=== PATIENT | female | born 1995 | race Caucasian/White ===

== ENCOUNTER 2017-05-04 16:10 | Emergency (ER) | payer BC, MEDICAID ==
--- NOTE | 2017-05-04 16:30 | EDM.PDOC ---
<Vane Florian - Last Filed: 05/04/17 17:42> ED HPI GENERAL MEDICAL PROBLEM - General Chief Complaint: General Stated Complaint: ILLNESS Time Seen by Provider: 05/04/17 16:29 Source of Information: Reports: Patient History Limitations: Reports: No Limitations - History of Present Illness INITIAL COMMENTS - FREE TEXT/NARRATIVE: PT ARRIVED HERE STATING THAT SHE IS NOT THINKING AND REMEMBERING THINGS. sHE DROVE ABOUT 10 MILES AND SHE DOES NOT REMEMBER DOING THAT. LIKE SHE USUALLY DOES. THAT. Onset: Today Duration: Hour(s):, Getting Worse Location: Reports: Head, Neck Associated Symptoms: Reports: Other (PT FEELS LIKE SHE IS NOT THINKING STRAIGHT. ) - Related Data Allergies Allergy/AdvReac Type Severity Reaction Status Date / Time No Known Allergies Allergy Verified 05/04/17 16:26 Home Meds: Home Meds NK [No Known Home Meds] 05/04/17 [History] Social & Family History - Tobacco Use Years of Tobacco use: 0 Used Tobacco, but Quit: No Second Hand Smoke Exposure: No - Alcohol Use Days Per Week of Alcohol Use: 0 - Recreational Drug Use Recreational Drug Use: No ED ROS GENERAL - Review of Systems Review Of Systems: See Below Constitutional: Reports: No Symptoms HEENT: Reports: No Symptoms Respiratory: Reports: No Symptoms Cardiovascular: Reports: No Symptoms Endocrine: Reports: No Symptoms GI/Abdominal: Reports: No Symptoms : Reports: No Symptoms Musculoskeletal: Reports: No Symptoms Skin: Reports: No Symptoms Neurological: Reports: Other ( DIFFICULTY THINKING STRAIGHT. ) ED EXAM, GENERAL - Physical Exam Exam: See Below Free Text/Narrative:: PT AARRIVED STATING THAT SHE IS NOT THINKING STRAIGHT. sHE DIDN,T REMEMBER DRIVING ABOUT 10 MILES. sHE GAVE BLOOD ON thursday. sHE THEN GOT HER PERIOD WHICH WAS FAUIRLY HEAVY, sHE THEN HAD SOME RINGING IN HER LEFT EAR WHICH SHE WAS SEEN AT THE CLINIC FOR AND NOTHING WAS SEEN, sHE THEN WENT TO THE [facility] FOR HER NECK AND HE DID A MAJOR ADJSTMENT ON THE NECK. Exam Limited By: No Limitations General Appearance: Alert, Anxious, Mild Distress, Other (PUPILS ARE EQUAL AND REACTIVE. ) Ears: Normal TMs Nose: Normal Inspection Throat/Mouth: Normal Inspection Head: Atraumatic Neck: Other ( pT HAS MUSCLE SPASM IN THE POST CERVICAL AREA. ) Respiratory/Chest: No Respiratory Distress Cardiovascular: Regular Rate, Rhythm GI/Abdominal: Soft, Non-Tender (Female) Exam: Deferred Rectal (Female) Exam: Deferred Back Exam: Normal Inspection Extremities: Normal Inspection Neurological: Alert, Oriented, Normal Cognition, Other (PT IS ABLE TO ANSWER QUESTIONS APPROPIATELY . sHE STATES SHE JUST FEELS VAGUE. ) Psychiatric: Anxious Course - Vital Signs Last Recorded V/S: Last Vital Signs Temp 36.4 C 05/04/17 18:44 Pulse 72 05/04/17 18:44 Resp 14 05/04/17 18:44 BP 129/77 05/04/17 18:44 Pulse Ox 100 05/04/17 18:44 Orthostatic Blood Pressure [ 114/77 Standing] Orthostatic Blood Pressure [ 124/74 Sitting] Orthostatic Blood Pressure [ 113/75 Supine] - Orders/Labs/Meds Orders: Active Orders 24 hr Category Date Time Status Cardiac Monitoring [RC] .As Directed Care 05/04/17 16:44 Active Orthostatic Vital Signs [RC] ASDIRECTED Care 05/04/17 16:28 Active Head wo Cont [CT] Stat Exams 05/04/17 17:40 Taken CULTURE URINE [RM] Stat Lab 05/04/17 17:31 Received Sodium Chloride 0.9% [Normal Saline] 1,000 ml Med 05/04/17 17:30 Active IV ASDIRECTED Medication Orders Sodium Chloride (Normal Saline) 1,000 mls @ 999 mls/hr IV ASDIRECTED JONATHAN Last Admin: 05/04/17 17:40 Dose: 999 mls/hr Labs: Laboratory Tests 05/04/17 05/04/17 05/04/17 Range/Units 16:44 16:44 17:05 WBC 7.7 (4.5-11.0) K/uL RBC 4.23 (3.30-5.50) M/uL Hgb 13.2 (12.0-15.0) g/dL Hct 39.5 (36.0-48.0) % MCV 93 (80-98) fL MCH 31 (27-31) pg MCHC 33 (32-36) % Plt Count 302 (150-400) K/uL Neut % (Auto) 79 H (36-66) % Lymph % (Auto) 16 L (24-44) % Wilcox % (Auto) 5 (2-6) % Eos % (Auto) 1 L (2-4) % Baso % (Auto) 0 (0-1) % Sodium 144 (140-148) mmol/L Potassium 4.1 (3.6-5.2) mmol/L Chloride 105 (100-108) mmol/L Carbon Dioxide 28 (21-32) mmol/L Anion Gap 10.9 (5.0-14.0) mmol/L BUN 5 L (7-18) mg/dL Creatinine 0.7 (0.6-1.0) mg/dL Est Cr Clr Drug Dosing 123.63 mL/min Estimated GFR (MDRD) > 60 (>60) Glucose 98 (74-106) mg/dL Calcium 9.2 (8.5-10.1) mg/dL Total Bilirubin 0.5 (0.2-1.0) mg/dL AST 21 (15-37) U/L ALT 18 (12-78) U/L Alkaline Phosphatase 60 (46-116) U/L Total Protein 7.8 (6.4-8.2) g/dL Albumin 2.8 L (3.4-5.0) g/dL Globulin 5.0 H (2.3-3.5) g/dL Albumin/Globulin Ratio 0.6 L (1.2-2.2) Urine Color Yellow Urine Appearance Slightly cloudy Urine pH 8.0 (4.5-8.0) Ur Specific Ira 1.015 (1.008-1.030) Urine Protein Negative (NEGATIVE) mg/dL Urine Glucose (UA) Normal (NEGATIVE) mg/dL Urine Ketones Negative (NEGATIVE) mg/dL Urine Occult Blood Negative (NEGATIVE) Urine Nitrite Negative (NEGATIVE) Urine Bilirubin Negative (NEGATIVE) Urine Urobilinogen Normal (NORMAL) mg/dL Ur Leukocyte Esterase Negative (NEGATIVE) Urine RBC 0-5 (0-5) Urine WBC 0-5 (0-5) Ur Epithelial Cells Few Amorphous Sediment Not seen Urine Bacteria Moderate Urine Mucus Not seen Urine HCG, Qual 05/04/17 Range/Units 17:31 WBC (4.5-11.0) K/uL RBC (3.30-5.50) M/uL Hgb (12.0-15.0) g/dL Hct (36.0-48.0) % MCV (80-98) fL MCH (27-31) pg MCHC (32-36) % Plt Count (150-400) K/uL Neut % (Auto) (36-66) % Lymph % (Auto) (24-44) % Wilcox % (Auto) (2-6) % Eos % (Auto) (2-4) % Baso % (Auto) (0-1) % Sodium (140-148) mmol/L Potassium (3.6-5.2) mmol/L Chloride (100-108) mmol/L Carbon Dioxide (21-32) mmol/L Anion Gap (5.0-14.0) mmol/L BUN (7-18) mg/dL Creatinine (0.6-1.0) mg/dL Est Cr Clr Drug Dosing mL/min Estimated GFR (MDRD) (>60) Glucose (74-106) mg/dL Calcium (8.5-10.1) mg/dL Total Bilirubin (0.2-1.0) mg/dL AST (15-37) U/L ALT (12-78) U/L Alkaline Phosphatase (46-116) U/L Total Protein (6.4-8.2) g/dL Albumin (3.4-5.0) g/dL Globulin (2.3-3.5) g/dL Albumin/Globulin Ratio (1.2-2.2) Urine Color Urine Appearance Urine pH (4.5-8.0) Ur Specific Ira (1.008-1.030) Urine Protein (NEGATIVE) mg/dL Urine Glucose (UA) (NEGATIVE) mg/dL Urine Ketones (NEGATIVE) mg/dL Urine Occult Blood (NEGATIVE) Urine Nitrite (NEGATIVE) Urine Bilirubin (NEGATIVE) Urine Urobilinogen (NORMAL) mg/dL Ur Leukocyte Esterase (NEGATIVE) Urine RBC (0-5) Urine WBC (0-5) Ur Epithelial Cells Amorphous Sediment Urine Bacteria Urine Mucus Urine HCG, Qual Negative Meds: Medications Generic Name Dose Route Start Last Admin Trade Name Freq PRN Reason Stop Dose Admin Sodium Chloride 1,000 mls @ 999 mls/hr 05/04/17 17:30 05/04/17 17:40 Normal Saline IV 999 mls/hr ASDIRECTED JONATHAN Administration Departure - Departure Disposition: Home, Self-Care 01 Clinical Impression: Malaise - Discharge Information Referrals: Sperle,Mere J, MD [Primary Care Provider] - Forms: ED Department Discharge, ED Return to Work/School Form Additional Instructions: the cause of your current symptoms are unclear he did have an episode of ringing in the ear, hearing loss and dizziness last week; if this is recurrent please make an appointment with your doctor. If you're not able to return to work within 3 days, make an appointment with your physician. Blood tests show a mild elevation of your neutrophils which might suggest a viral infection, in addition your albumin is low which might suggest her diet is low in protein, neither of these were would adequately explain your symptoms of feeling disconnected or depersonalized. There is no evidence of any abnormality on her CT scan and your acid-base balance electrolytes and kidney function are normal. <Quentin Walker - Last Filed: 05/04/17 19:18> Course - Re-Assessments/Exams Free Text/Narrative Re-Assessment/Exam: 05/04/17 19:16 19.00 transferred to my care from Dr. Florian Patient with symptoms of feeling disconnected/depersonalized/fatigue. Hemoglobin and WBC normal although she has increased neutrophils Platelets normal Electrolytes urea creatinine GFR normal Low albumin Urinalysis normal CT head negative She had an episode of tinnitus, hearing loss and dizziness/balance problems lasting about 24 hours last week. 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 Departure - Departure Time of Disposition: 19:13 Condition: Undetermined (stable)
[2017-05-04] MEDS ORDERED: Sodium Chloride 0.9% 1,000 ML IV SCH (17:30)
[2017-05-04 19:37] VITALS: BP 118/77
== END 2017-05-04 19:41 | disposition home or self-care (01) ==
LOC: JP.ED 16:10
DX: R53.81 Other malaise (principal)
CPT/HCPCS: 36415; 70450; 80053; 81001; 81025; 85025; 87086; 96360; 99284; J7040; J7030